=== PATIENT | female | born 1960 | race Caucasian/White ===

== ENCOUNTER → 2019-02-16 | Outpatient (CLI) | payer SELFPAY ==
[2019-02-16 08:56] LABS: BUN/CREATININE RATIO 18; CREATININE SERUM 0.73 MG/DL (0.60-1.30); GFR ESTIMATED > 60
== END ==
LOC: LAB FS 08:08
PROVIDERS: ATTEND Otolaryngology Otolaryngology/Facial Plastic Surgery
DX: Z51.81 Encounter for therapeutic drug level monitoring (principal); Z79.84 Long term (current) use of oral hypoglycemic drugs
CPT/HCPCS: 36415; 82565; 84520